=== PATIENT | male | born 1980 | race African-American/Black ===

== ENCOUNTER 2017-12-25 17:33 | Inpatient (IN) | payer SELFPAY ==
[2017-12-25] MEDS ORDERED: Fentanyl 100 MCG/2 ML VIAL ONE (17:44)
[2017-12-25] MEDS ORDERED: HYDROcodone/Acetaminophen 5/325 mg Tablet ONE (18:49)
--- NOTE | 2017-12-25 19:12 | RAD ---
LEFT FOOT: 12/25/17 Two views obtained. HISTORY: Trauma with left foot pain and deformity. There is evidence of fracture dislocation at the tarsometatarsal joints. I cannot exclude fracture in volving the base of the second, third or fourth metatarsals and I cannot exclude fractures of the cun eiforms or cuboid. IMPRESSION: Evidence of fracture dislocation at the tarsometatarsal joints. POS: [facility]
[2017-12-25] MEDS ORDERED: Acetaminophen 325 MG TAB PO PRN (20:08)
[2017-12-25] MEDS ORDERED: Ondansetron HCl/PF 4 MG/2 ML Vial IVP PRN (20:08)
[2017-12-25] MEDS ORDERED: Ondansetron ODT 4 MG TAB SL PRN (20:08)
[2017-12-25] MEDS ORDERED: Ondansetron HCl/PF 4 MG/2 ML Vial IV PRN (20:57)
[2017-12-25] MEDS ORDERED: Milk Of Magnesia 30 ML UDCUP PO PRN (20:57)
[2017-12-25] MEDS ORDERED: Fentanyl 100 MCG/2 ML VIAL SLOW IVP PRN (20:57)
[2017-12-25] MEDS ORDERED: RENALLY ADJUST ANTIBIOTICS FS PRN (21:00)
[2017-12-25] MEDS: HYDROcodone/Acetaminophen 10/325 mg Tablet PO PRN (22:23)
[2017-12-25] MEDS: Sodium Chloride 0.9% 100 ML IV SCH ×2 (22:25→23:50)
[2017-12-25] MEDS: Sodium Chloride 0.9% 1,000 ML IV SCH (23:16)
[2017-12-25 23:22] VITALS: BMI 29.8
[2017-12-26] MEDS: Ketorolac Tromethamine 30 MG/ML VIAL IVP SCH ×3 (00:03→12:48)
[2017-12-26] MEDS: traMADol HCl 50 MG TAB PO PRN (00:05)
--- NOTE | 2017-12-26 02:02 | HP ---
DATE OF SERVICE: 12/25/2017 CHIEF COMPLAINT: Left foot pain. HISTORY OF PRESENT ILLNESS: The patient was arising from a chair this evening. He lost his balance and put all his weight on the left foot as he twisted. He felt pain and popping in the foot. He los t balance and fell. He was unable to bear full weight and his foot became swollen. He presented to the Emergency Department. X-rays were obtained, which have shown midfoot fracture dislocation includ ing the Lisfranc joint. He has been splinted and admitted to the hospital. He is currently comforta ble. He has received pain medications. No other injury is noted. PAST MEDICAL HISTORY: Previous left distal radius fracture. PAST SURGICAL HISTORY: Negative. PSYCHIATRIC HISTORY: Negative. SOCIAL HISTORY: The patient denies significant alcohol or tobacco use. He denies drug use. ALLERGIES: No known drug allergies. MEDICATIONS: None. RESULTS REVIEWED: Images of the left foot demonstrate a Lisfranc fracture dislocation with complete lateral displacement of the metatarsals including first through fifth. It is somewhat difficult to v isualize, which are simply dislocated and which are fractured at the base. There is clearly wide dis placement. PHYSICAL EXAMINATION: VITAL SIGNS: Blood pressure is 163/100, pulse 93, respiratory rate 20, temperature is 98.9. GENERAL: He is alert and oriented, sitting upright, in no apparent distress. RESPIRATORY: Breathing comfortably. HEENT: Normocephalic, atraumatic. CARDIOVASCULAR: Pulse is palpable and regular. MUSCULOSKELETAL: The patient's left foot is splinted. He is able to gently flex and extend the toes . Two second capillary refill. He feels normal sensation in the dorsal and plantar aspect of the to es. Foot is warm and well perfused. IMPRESSION: Left midfoot fracture dislocation, including Lisfranc disruption. PLAN: At this point, the patient will have pain control tonight. He should be n.p.o. at midnight. He will need to go to the operating room tomorrow for open reduction and internal fixation of the met atarsal fracture dislocations. I will plan for screw fixation of the first, second and then K-wire f ixation of the third, fourth, and fifth metatarsals. He is aware of prolonged recovery process. Thi s injury likely takes 1-2 years to fully recover from. He is at risk for chronic pain, osteoarthriti s, wound complication, nerve or vascular injury and others. He will have appropriate antibiotic prop hylaxis and DVT prophylaxis.
[2017-12-26] MEDS: Sodium Chloride 0.9% 1,000 ML IV SCH ×3 (05:24→20:45)
[2017-12-26] MEDS: HYDROcodone/Acetaminophen 10/325 mg Tablet PO PRN ×2 (09:01→12:49)
[2017-12-26] MEDS ORDERED: CEFAZOLIN/Water 2 GM/20 ML SYRINGE SLOW IVP SCH (12:00)
[2017-12-26] MEDS ORDERED: CEFAZOLIN/Water 2 GM/20 ML SYRINGE ONE (13:34)
[2017-12-26] MEDS ORDERED: Midazolam HCl 2 mg/2 ml Vial ONE (14:09)
[2017-12-26] MEDS ORDERED: Fentanyl 100 MCG/2 ML VIAL ONE ×2 (14:09→15:12)
[2017-12-26] MEDS ORDERED: Ketorolac Tromethamine 30 MG/ML VIAL ONE (14:22)
[2017-12-26] MEDS ORDERED: Dexamethasone 20 MG/5 ML VIAL ONE (14:22)
[2017-12-26] MEDS ORDERED: Ondansetron HCl/PF 4 MG/2 ML Vial ONE (14:22)
[2017-12-26] MEDS ORDERED: Lidocaine 1% PF 5 ML VIAL ONE (14:22)
[2017-12-26] MEDS ORDERED: PROPOFOL 200 MG/20 ML VIAL ONE (14:22)
[2017-12-26] MEDS ORDERED: Metoclopramide HCl 10 MG/2 ML VIAL ONE (14:22)
[2017-12-26] MEDS ORDERED: Bupivacaine HCl 0.5%/Epinephrine 1:200,000/PF 30 ml Vial ONE ×2 (14:32→15:06)
[2017-12-26] MEDS ORDERED: Bupivacaine/Epinephrine 0.25% 30 ML VIAL ONE (15:06)
--- NOTE | 2017-12-26 18:18 | RAD ---
LEFT FOOT: 12/26/17 Three fluoroscopic views from OR presented. INDICATIONS: Open reduction and internal fixation left foot. FINDINGS/IMPRESSION: These films demonstrate screws transfixing the first and second tarsometatarsal joint. There are also pins transfixing the fifth tarsometatarsal joint. POS: [facility]
--- NOTE | 2017-12-26 20:12 | OP ---
DATE OF PROCEDURE: 12/26/2017 PROCEDURE: Open reduction internal fixation of left midfoot dislocation including first through fift h metatarsals with reconstruction of the Lisfranc joint. PREOPERATIVE DIAGNOSIS: Dislocation of first through fifth metatarsals. POSTOPERATIVE DIAGNOSIS: Dislocation of first through fifth metatarsals. COMPLICATIONS: None. ESTIMATED BLOOD LOSS: Minimal. SURGEON: Bruce Rodriguez M.D. [employer] VBA DEVELOPER: Tevin Morales PA-C. IMPLANTS: A 3.5 mm Synthes nonlocking screws and K-wires were used. INDICATIONS: Mr. Givens is a 37-year-old male who sustained a dislocation of the first, second, third , fourth, and fifth metatarsals. He had complete disruption of the Lisfranc ligament. He was indica kendrick for open reduction and internal fixation of the injured joints to restore anatomic alignment and promote healing. Risks have been reviewed in detail. He has elected to proceed with the operation. He is aware of risks which include post-traumatic arthritis, chronic pain, nonunion, malunion, hardw are failure, and others. He may need hardware removed in the future. DESCRIPTION OF PROCEDURE: Mr. Givens was identified in the preoperative holding area. His correct ex tremity was marked. He was carried to the operating room. He was positioned supine. General anesth esia was induced. A multidisciplinary timeout was performed. The left lower extremity was prepped a nd draped in sterile fashion. We began the procedure with an incision centered over the first and second metatarsals. We dissected down through the subcutaneous tissues, protecting neurological structures. At this point, we encoun tered the fracture dislocation of the metatarsals. We performed an open reduction sweeping tendinous tissue out of the way. We then used intraoperative x-ray to assess our reduction. Once we had an a natomic reduction, we proceeded to place a 3.5 mm screw from the first metatarsal into the medial cun eiform bone. We placed a second screw across the Lisfranc ligament from the medial cuneiform into th e second metatarsal. Finally, we placed a third screw from the second metatarsal into the middle cun eiform. At this point, we assessed the lateral metatarsals. These were held into a reduced position through an open incision over the fourth metatarsal. Once we had an anatomic reduction, we placed t wo K-wires through the fifth metatarsal stabilizing the lateral column. Again, we took x-ray images confirming hardware placement and alignment. There were no complications. We thoroughly irrigated w ith copious lavage. We then closed with a 2-0 Vicryl suture and nylon for the skin. A sterile dress ing and a splint was placed. The patient was taken to the recovery room in good condition without co mplication.
[2017-12-26] MEDS ORDERED: Ketorolac Tromethamine 30 MG/ML VIAL IVP SCH (22:00)
[2017-12-27] MEDS: HYDROcodone/Acetaminophen 10/325 mg Tablet PO PRN ×3 (00:03→10:51)
--- NOTE | 2017-12-27 02:17 | DIS ---
DATE OF ADMISSION: 12/25/2017 DATE OF DISCHARGE: 12/26/2017 HOSPITAL COURSE: Mr. Givens is a 37-year-old male who fell the day of admission. He sustained a disl ocation of the first, second, third, fourth, and fifth metatarsals of the left midfoot. He was taken to the operating room where we performed open reduction and internal fixation of the injury. He did well during and after surgery. There were no complications. His pain was controlled. He mobilized and was able to be discharged. Tolerating an oral diet. DISCHARGE INSTRUCTIONS: The patient is to strictly elevate the foot. He will remain in his splint u ntil followup visit in 10 to 14 days. He should be nonweightbearing.
[2017-12-27 07:42] VITALS: BP 153/85; TEMP 98.7
[2017-12-27] MEDS: traMADol HCl 50 MG TAB PO PRN (08:43)
== END 2017-12-27 11:02 | disposition home or self-care (01) | DRG 505 ==
LOC: ERS 17:33 → SURG B 18:36
PROVIDERS: ADMIT Orthopaedic Surgery; ATTEND Orthopaedic Surgery
PROC: 0QSP04Z Reposition Left Metatarsal with Internal Fixation Device, Open Approach (ICD-10-PCS; principal; 2017-12-26)
PROC: 0SQN0ZZ Repair Left Metatarsal-Phalangeal Joint, Open Approach (ICD-10-PCS; 2017-12-26)
DX: S93.325A Dislocation of tarsometatarsal joint of left foot, initial encounter (principal); S93.622A Sprain of tarsometatarsal ligament of left foot, initial encounter; W18.39XA Other fall on same level, initial encounter; Y92.098 Other place in other non-institutional residence as the place of occurrence of the external cause
CPT/HCPCS: 29515; 76001; 96374; C1713; G8978-GP-CI; G8979-GP-CI; G8980-GP-CI; J0131; J0670; J1100; J1885; J2001; J2250; J2270; J2405; J2704; J2765; J3010